=== PATIENT | female | born 1980 | race African-American/Black ===

== ENCOUNTER 2021-12-17 18:38 | Emergency (ER) | payer OTHER ==
--- NOTE | 2021-12-17 18:43 | ERPHSYRPT ---
- History of Present Illness Time Seen by Provider: 12/17/21 18:43 Source: patient Exam Limitations: no limitations Physician History: This is an -[place] 41-year-old female who is staying at the [facility] in [facility] secondary to alcohol abuse. She has not had an alcoholic beverage or any illicit drugs in 23 days. Patient has a history of diabetes, hypertension and pancreatitis. This morning, she had onset of abdominal pain that was significant and severe per her report. It was associated with vomiting episodes. She also noticed that her blood pressure and blood sugar were elevated as well. Patient was seen in [facility] emergency department approxi-1 week ago and a CAT scan with IV contrast was performed of her abdomen and pelvis. We have requested those records. Patient is here at our facility because she feels that they, [facility] emergency department, did not do anything for her. However, it appears as they did a significant work-up and again we are waiting for those records. Timing/Duration: today Severity: mild (To moderate) Associated Symptoms: nausea, vomiting, abdominal pain, No shortness of breath, No chest pain Allergies/Adverse Reactions: hydrocodone Allergy (Severe, Verified 12/17/21 19:51) Reaction: Psychosis ketorolac [From Toradol] Allergy (Severe, Verified 12/17/21 19:51) Reaction: Psychosis lisinopril Allergy (Severe, Verified 12/17/21 19:51) Swelling of Face Swelling of throat and face meperidine [From Demerol] Allergy (Severe, Verified 12/17/21 19:51) Reaction: Psychosis Home Medications: Albuterol Sulfate [Albuterol Sulfate Hfa] 2 puff PO Q4-6HPRN PRN 12/17/21 [History] Amlodipine Besylate [Norvasc] 1 tab PO DAILY 12/17/21 [History] Folic Acid 1 mg [Folate 1 mg] 1 tab PO DAILY 12/17/21 [History] Gabapentin 100 mg [Neurontin 100 MG] 200 mg PO TID 12/17/21 [History] Glipizide 10 mg [Glucotrol 10 MG] 1 tab PO DAILY 12/17/21 [History] Insulin Lispro See Protocol SQ CLARIFY 12/17/21 [History] Levetiracetam [Spritam] 1 tab PO BID 12/17/21 [History] Lipase/Protease/Amylase [Girish Sawant 36,000 Unit Capsule] 1 cap PO TID 12/17/21 [History] Mirtazapine 30 mg [Remeron 30 mg] 1 tab PO HS 12/17/21 [History] Multivitamin 1 tab PO DAILY 12/17/21 [History] Naltrexone HCl 50 mg PO DAILY 12/17/21 [History] Propranolol HCl 10 mg PO TID 12/17/21 [History] Sertraline HCl 50 mg [Zoloft 50 mg Tablet] 1 tab PO DAILY 12/17/21 [History] Sub-Q Infusion Pump Accessory [Accu-Chek] 1 each SQ QID 12/17/21 [History] cloNIDine HCL [Clonidine HCl] 1 tab PO DAILY 12/17/21 [History] cloNIDine HCL [Clonidine HCl] 1 tab PO HS 12/17/21 [History] hydrOXYzine pamoate [Hydroxyzine Pamoate] 100 mg PO HS 12/17/21 [History] Travel Risk - International Travel Have you traveled outside of the country in past 3 weeks: No - Coronavirus Screening Are you exhibiting any of the following symptoms?: No Close contact with a COVID-19 positive Pt in past 14-21 Days: No - Review of Systems Constitutional: No Symptoms Eyes: No Symptoms Ears, Nose, & Throat: No Symptoms, Tinnitus Respiratory: No Symptoms Cardiac: No Symptoms Abdominal/Gastrointestinal: Abdominal Pain, Nausea, Vomiting, No Diarrhea Genitourinary Symptoms: No Symptoms Musculoskeletal: No Symptoms Skin: No Symptoms Neurological: No Symptoms Psychological: No Symptoms Endocrine: No Symptoms Hematologic/Lymphatic: No Symptoms Immunological/Allergic: No Symptoms All Other Systems: Reviewed and Negative - Past Medical History Pertinent Past Medical History: Yes Cardiac History: Hypertension Endocrine Medical History: Diabetes Type I GI Medical History: Pancreatitis History: No Pertinent History Psycho-Social History: No Pertinent History Female Reproductive Disorders: No Pertinent History - Past Surgical History Past Surgical History: Yes - Nursing Vital Signs Nursing Vital Signs: Initial Vital Signs Temperature 98.3 F 12/17/21 18:40 Pulse Rate 83 12/17/21 18:40 Respiratory Rate 20 12/17/21 18:40 Blood Pressure 153/98 12/17/21 18:40 O2 Sat by Pulse Oximetry 99 12/17/21 18:40 Pain Scale Pain Intensity 9 - Physical Exam General Appearance: no apparent distress, alert, anxiety, thin Eye Exam: PERRL/EOMI, eyes nml inspection Ears, Nose, Throat Exam: normal ENT inspection, moist mucous membranes Neck Exam: normal inspection, non-tender, supple, full range of motion Respiratory Exam: normal breath sounds, lungs clear, airway intact, No chest tenderness, No respiratory distress Cardiovascular Exam: regular rate/rhythm, normal heart sounds, normal peripheral pulses Gastrointestinal/Abdomen Exam: soft, normal bowel sounds, tenderness (Mild diffuse to palpation), No guarding, No rebound Pelvic Exam: not done Rectal Exam: not done Back Exam: normal inspection, normal range of motion, No CVA tenderness, No vertebral tenderness Extremity Exam: normal inspection, normal range of motion, pelvis stable Neurologic Exam: alert, oriented x 3, cooperative, circular distributor II-XII nml as tested, normal mood/affect, nml cerebellar function, nml station & gait, sensation nml Skin Exam: normal color, warm, dry Lymphatic Exam: No adenopathy SpO2 Interpretation: normal O2 Delivery: Room Air - Course Nursing assessment & vital signs reviewed: Yes Ordered Tests: Active Orders 24 hr Category Date Time Status Diver Tender STAT Care 12/17/21 19:08 Active Clean Catch Urine Specimen STAT Care 12/17/21 19:09 Active IV Insertion STAT Care 12/17/21 19:08 Active POCT Glucose Check STAT Care 12/17/21 19:08 Active ABDOMEN AND PELVIS W/0 CONTRAS [CT] Stat Exams 12/17/21 19:43 Ordered AMYLASE Stat Lab 12/17/21 20:10 Completed CBC W DIFF Stat Lab 12/17/21 19:16 Completed CMP Stat Lab 12/17/21 19:16 Completed ETHYL ALCOHOL Stat Lab 12/17/21 19:16 Completed LIPASE Stat Lab 12/17/21 20:10 Completed Lactic Acid Urgent Lab 12/17/21 19:13 Completed MAGNESIUM Stat Lab 12/17/21 19:16 Completed POCT GLUCOSE Stat Lab 12/17/21 19:19 Completed POCT GLUCOSE Stat Lab 12/17/21 20:49 Received POCT GLUCOSE Stat Lab 12/17/21 20:50 Completed Urine Triage Profile Stat Lab 12/17/21 19:16 Completed Medication Summary Generic Name Dose Route Start Last Admin Trade Name Freq PRN Reason Stop Dose Admin Sodium Chloride 1,000 mls @ 100 mls/hr 12/17/21 19:15 12/17/21 19:24 Sodium Chloride 0.9% 1000 Ml IV 01/16/22 19:14 100 mls/hr .Q10H SAM Administration Discontinued Medications Generic Name Dose Route Start Last Admin Trade Name Pan PRN Reason Stop Dose Admin Hydromorphone HCl 1 mg 12/17/21 20:02 12/17/21 20:18 Hydromorphone 1 Mg/1ml Inj 1 Mg/Ml Syringe IV 12/17/21 20:03 1 mg STAT ONE Administration Hydromorphone HCl Confirm 12/17/21 20:16 Hydromorphone 1 Mg/1ml Inj 1 Mg/Ml Syringe Administered 12/17/21 20:17 Dose 1 mg .ROUTE .STK-MED ONE Insulin Human Regular 4 unit 12/17/21 19:42 12/17/21 19:50 Insulin Regular, Human 1 Unit IV 12/17/21 19:43 4 unit STAT ONE Administration Insulin Human Regular Confirm 12/17/21 19:48 Insulin Regular, Human 1 Unit Administered 12/17/21 19:49 Dose 4 unit .ROUTE .STK-MED ONE Ondansetron HCl 4 mg 12/17/21 19:43 12/17/21 19:51 Ondansetron Hcl 4 Mg/2 Ml Vial IV 12/17/21 19:44 4 mg STAT ONE Administration Ondansetron HCl Confirm 12/17/21 19:47 Ondansetron Hcl 4 Mg/2 Ml Vial Administered 12/17/21 19:48 Dose 4 mg .ROUTE .STK-MED ONE Lab/Rad Data: Laboratory Result Diagrams 12/17/21 19:16 12/17/21 19:16 Laboratory Results 12/17/21 12/17/21 12/17/21 Range/Units 20:50 20:10 19:19 WBC (4.0-10.5) K/mm3 RBC (4.1-5.4) M/mm3 Hgb (12.0-16.0) gm/dl Hct (35-47) % MCV (78-100) fl MCH (26-32) pg MCHC (32-36) g/dl RDW (11.5-14.0) % Plt Count (150-450) K/mm3 MPV (7.5-11.0) fl Gran % (36.0-66.0) % Eos # (Auto) (0-0.5) Absolute Lymphs (auto) (1.0-4.6) Absolute Monos (auto) (0.0-1.3) Lymphocytes % (24.0-44.0) % Monocytes % (0.0-12.0) % Eosinophils % (0.00-5.0) % Basophils % (0.0-0.4) % Absolute Granulocytes (1.4-6.9) Basophils # (0-0.4) Sodium (137-145) mmol/L Potassium (3.5-5.1) mmol/L Chloride (98-107) mmol/L Carbon Dioxide (22-30) mmol/L Anion Gap (5-15) MEQ/L BUN (7-17) mg/dL Creatinine (0.52-1.04) mg/dL Estimated GFR ML/MIN Glucose (74-106) mg/dL POC Glucometer 272 H 339 H (74 to 106) mg/dL Lactic Acid (0.4-2.0) Calcium (8.4-10.2) mg/dL Magnesium (1.6-2.3) mg/dL Total Bilirubin (0.2-1.3) mg/dL AST (14-36) U/L ALT (0-35) U/L Alkaline Phosphatase (38-126) U/L Serum Total Protein (6.3-8.2) g/dL Albumin (3.5-5.0) g/dL Amylase 161 H (30-110) U/L Lipase 329 H (23-300) U/L Urinalys Dipstick Clnc Urine Color (YELLOW) Urine Appearance (CLEAR) Urine pH (5-6) Ur Specific [place] (1.005-1.025) POC Urine Protein Conf (Negative) Urine Ketones (NEGATIVE) Urine Nitrite (NEGATIVE) Urine Bilirubin (NEGATIVE) Urine Urobilinogen (0-1) mg/dL Urine Leukocytes (NEGATIVE) Urine WBC (Auto) (0-5) /HPF Urine RBC (Auto) (0-2) /HPF U Epithel Cells (Auto) (FEW) /HPF Urine Bacteria (Auto) (NEGATIVE) /HPF Urine RBC (0-5) Nikos/ul Urine Mucus (Auto) (NEGATIVE) /HPF Ur Culture Indicated? Urine Glucose (NEGATIVE) mg/dL Urine Opiates Level (NEGATIVE) Ur Methadone (NEGATIVE) Urine Barbiturates (NEGATIVE) Ur Phencyclidine (PCP) (NEGATIVE) Urine Amphetamine (NEGATIVE) U Benzodiazepine Level (NEGATIVE) Urine Cocaine (NEGATIVE) Urine Marijuana (THC) (NEGATIVE) Ethyl Alcohol (0-10) mg/dL Slides for Path Review 12/17/21 12/17/21 12/17/21 Range/Units 19:16 19:16 19:16 WBC 10.9 H (4.0-10.5) K/mm3 RBC 3.41 L (4.1-5.4) M/mm3 Hgb 8.6 L (12.0-16.0) gm/dl Hct 27.8 L (35-47) % MCV 81.5 (78-100) fl MCH 25.2 L (26-32) pg MCHC 30.9 L (32-36) g/dl RDW 25.5 H (11.5-14.0) % Plt Count 327 (150-450) K/mm3 MPV 9.8 (7.5-11.0) fl Gran % 56.9 (36.0-66.0) % Eos # (Auto) 0.13 (0-0.5) Absolute Lymphs (auto) 3.59 (1.0-4.6) Absolute Monos (auto) 0.81 (0.0-1.3) Lymphocytes % 33.0 (24.0-44.0) % Monocytes % 7.4 (0.0-12.0) % Eosinophils % 1.2 (0.00-5.0) % Basophils % 1.5 (0.0-0.4) % Absolute Granulocytes 6.19 (1.4-6.9) Basophils # 0.16 (0-0.4) Sodium 133 L (137-145) mmol/L Potassium 4.5 (3.5-5.1) mmol/L Chloride 99 (98-107) mmol/L Carbon Dioxide 25 (22-30) mmol/L Anion Gap 14.0 (5-15) MEQ/L BUN 21 H (7-17) mg/dL Creatinine 0.47 L (0.52-1.04) mg/dL Estimated GFR > 60.0 ML/MIN Glucose 350 H (74-106) mg/dL POC Glucometer (74 to 106) mg/dL Lactic Acid (0.4-2.0) Calcium 9.7 (8.4-10.2) mg/dL Magnesium 1.7 (1.6-2.3) mg/dL Total Bilirubin 0.40 (0.2-1.3) mg/dL AST 63 H (14-36) U/L ALT 32 (0-35) U/L Alkaline Phosphatase 66 (38-126) U/L Serum Total Protein 7.4 (6.3-8.2) g/dL Albumin 4.1 (3.5-5.0) g/dL Amylase (30-110) U/L Lipase (23-300) U/L Urinalys Dipstick Clnc Urine Color (YELLOW) Urine Appearance (CLEAR) Urine pH (5-6) Ur Specific [place] (1.005-1.025) POC Urine Protein Conf (Negative) Urine Ketones (NEGATIVE) Urine Nitrite (NEGATIVE) Urine Bilirubin (NEGATIVE) Urine Urobilinogen (0-1) mg/dL Urine Leukocytes (NEGATIVE) Urine WBC (Auto) (0-5) /HPF Urine RBC (Auto) (0-2) /HPF U Epithel Cells (Auto) (FEW) /HPF Urine Bacteria (Auto) (NEGATIVE) /HPF Urine RBC (0-5) Nikos/ul Urine Mucus (Auto) (NEGATIVE) /HPF Ur Culture Indicated? Urine Glucose (NEGATIVE) mg/dL Urine Opiates Level NEGATIVE (NEGATIVE) Ur Methadone NEGATIVE (NEGATIVE) Urine Barbiturates POSITIVE (NEGATIVE) Ur Phencyclidine (PCP) NEGATIVE (NEGATIVE) Urine Amphetamine NEGATIVE (NEGATIVE) U Benzodiazepine Level NEGATIVE (NEGATIVE) Urine Cocaine NEGATIVE (NEGATIVE) Urine Marijuana (THC) NEGATIVE (NEGATIVE) Ethyl Alcohol < 10 (0-10) mg/dL Slides for Path Review YES 12/17/21 12/17/21 Range/Units 19:16 19:13 WBC (4.0-10.5) K/mm3 RBC (4.1-5.4) M/mm3 Hgb (12.0-16.0) gm/dl Hct (35-47) % MCV (78-100) fl MCH (26-32) pg MCHC (32-36) g/dl RDW (11.5-14.0) % Plt Count (150-450) K/mm3 MPV (7.5-11.0) fl Gran % (36.0-66.0) % Eos # (Auto) (0-0.5) Absolute Lymphs (auto) (1.0-4.6) Absolute Monos (auto) (0.0-1.3) Lymphocytes % (24.0-44.0) % Monocytes % (0.0-12.0) % Eosinophils % (0.00-5.0) % Basophils % (0.0-0.4) % Absolute Granulocytes (1.4-6.9) Basophils # (0-0.4) Sodium (137-145) mmol/L Potassium (3.5-5.1) mmol/L Chloride (98-107) mmol/L Carbon Dioxide (22-30) mmol/L Anion Gap (5-15) MEQ/L BUN (7-17) mg/dL Creatinine (0.52-1.04) mg/dL Estimated GFR ML/MIN Glucose (74-106) mg/dL POC Glucometer (74 to 106) mg/dL Lactic Acid 1.6 (0.4-2.0) Calcium (8.4-10.2) mg/dL Magnesium (1.6-2.3) mg/dL Total Bilirubin (0.2-1.3) mg/dL AST (14-36) U/L ALT (0-35) U/L Alkaline Phosphatase (38-126) U/L Serum Total Protein (6.3-8.2) g/dL Albumin (3.5-5.0) g/dL Amylase (30-110) U/L Lipase (23-300) U/L Urinalys Dipstick Clnc MAIN LAB Urine Color YELLOW (YELLOW) Urine Appearance CLEAR (CLEAR) Urine pH 6.5 (5-6) Ur Specific [place] 1.025 (1.005-1.025) POC Urine Protein Conf NEGATIVE (Negative) Urine Ketones NEGATIVE (NEGATIVE) Urine Nitrite NEGATIVE (NEGATIVE) Urine Bilirubin NEGATIVE (NEGATIVE) Urine Urobilinogen 0.2 (0-1) mg/dL Urine Leukocytes NEGATIVE (NEGATIVE) Urine WBC (Auto) 0-2 (0-5) /HPF Urine RBC (Auto) NONE (0-2) /HPF U Epithel Cells (Auto) RARE (FEW) /HPF Urine Bacteria (Auto) NONE (NEGATIVE) /HPF Urine RBC LARGE (0-5) Nikos/ul Urine Mucus (Auto) SLIGHT (NEGATIVE) /HPF Ur Culture Indicated? NO Urine Glucose 500 (NEGATIVE) mg/dL Urine Opiates Level (NEGATIVE) Ur Methadone (NEGATIVE) Urine Barbiturates (NEGATIVE) Ur Phencyclidine (PCP) (NEGATIVE) Urine Amphetamine (NEGATIVE) U Benzodiazepine Level (NEGATIVE) Urine Cocaine (NEGATIVE) Urine Marijuana (THC) (NEGATIVE) Ethyl Alcohol (0-10) mg/dL Slides for Path Review - Progress Progress: improved, pain not gone completely, re-examined Progress Note: 12/17/21 20:42 CAT scan of the abdomen and pelvis shows a left adnexal mass/cyst ovarian in nature is most likely. There is chronic pancreatitis present. There is a normal appendix. 12/17/21 20:43 Records from [facility] emergency department was reviewed. The date of those records were 12/10/2021. Ultrasound of the pelvis shows a hemorrhagic left ovarian cyst. Counseled pt/family regarding: lab results, diagnosis, need for follow-up, rad results - Departure Departure Disposition: Home Clinical Impression: Abdominal pain, Chronic pancreatitis Condition: Stable Critical Care Time: No Referrals: DOCTOR,NO FAMILY [Primary Care Provider] - Follow up/PCP as directed Additional Instructions: Clear liquids only for the next 12 to 16 hours. Avoid fatty greasy spicy foods. Follow-up with your primary care provider for further evaluation and management. Prescriptions: Ondansetron ODT 4 MG [Zofran Odt 4 mg] 4 mg PO Q6H PRN PRN #10 tablet PRN Reason: Vomiting
[2021-12-17] MEDS ORDERED: Sodium Chloride 0.9% 1000 ML 1,000 ML IV SCH (19:15)
[2021-12-17 19:20] LABS: Absolute Neutrophil Ct (ANC) 6.19 (1.4-6.9); Basophil (Absolute #) 0.16 (0-0.4); Eosinophil % 1.2 % (0.00-5.0); Eosinophil (Absolute #) 0.13 (0-0.5); Hematocrit 27.8 % (35-47); Hemoglobin 8.6 gm/dl (12.0-16.0); Lymphocyte (Absolute #) 3.59 (1.0-4.6); Mean Cell Volume 81.5 fl (78-100); Mean Corpuscular Hemoglobin 25.2 pg (26-32); Mean Corpuscular Hgb Concent. 30.9 g/dl (32-36); Mean Platelet Volume 9.8 fl (7.5-11.0); Monocyte (Absolute #) 0.81 (0.0-1.3); Monocytes % 7.4 % (0.0-12.0); Neutrophil % 56.9 % (36.0-66.0); Platelet Count 327 K/mm3 (150-450); Red Blood Count 3.41 M/mm3 (4.1-5.4); Red Cell Distribution Width 25.5 % (11.5-14.0); White Blood Count 10.9 K/mm3 (4.0-10.5)
[2021-12-17] MEDS ORDERED: Sodium Chloride 0.9% 1000 ML 1,000 ML ONE ×2 (19:22→21:50)
[2021-12-17 19:23] LABS: Appearance CLEAR (CLEAR); Bilirubin NEGATIVE (NEGATIVE); Dipstick done @ ? MAIN LAB; Glucose 500 mg/dL (NEGATIVE); Ketones NEGATIVE (NEGATIVE); Nitrite NEGATIVE (NEGATIVE); Ph 6.5 (5-6); Protein,Urine Dip NEGATIVE (Negative); RBC LARGE Ery/ul (0-5); Specific Gravity 1.025 (1.005-1.025); Urobilinogen 0.2 mg/dL (0-1)
[2021-12-17 19:28] LABS: Epithelial Cells RARE /HPF (FEW); Mucus SLIGHT /HPF (NEGATIVE); WBC 0-2 /HPF (0-5)
[2021-12-17 19:29] LABS: Urine Cultured Indicated? NO
[2021-12-17 19:40] LABS: ALBUMIN 4.1 g/dL (3.5-5.0); ALKALINE PHOSPHATASE 66 U/L (38-126); Amphetamine,Urine NEGATIVE (NEGATIVE); BLOOD UREA NITROGEN 21 mg/dL (7-17); Barbiturate,Urine POSITIVE (NEGATIVE); Benzodiazepine,Urine NEGATIVE (NEGATIVE); CHLORIDE 99 mmol/L (98-107); Calcium 9.7 mg/dL (8.4-10.2); Carbon Dioxide 25 mmol/L (22-30); Cocaine,Urine NEGATIVE (NEGATIVE); Creatinine 1 0.47 mg/dL (0.52-1.04); EST GLOMERULAR FILTRATION RATE > 60.0 ML/MIN; ETHYL ALCOHOL < 10 mg/dL (0-10); Glucose 350 mg/dL (74-106); MAGNESIUM 1.7 mg/dL (1.6-2.3); Methadone,Urine NEGATIVE (NEGATIVE); Opiate,Urine NEGATIVE (NEGATIVE); PCP,Urine NEGATIVE (NEGATIVE); Potassium 4.5 mmol/L (3.5-5.1); SGOT/AST 63 U/L (14-36); SGPT/ALT 32 U/L (0-35); SODIUM 133 mmol/L (137-145); THC,Urine NEGATIVE (NEGATIVE); Total Protein 7.4 g/dL (6.3-8.2)
[2021-12-17] MEDS ORDERED: HUMULIN R IV ONE ×2 (19:42→22:26)
[2021-12-17] MEDS ORDERED: Zofran 4 MG/2 ML VIAL IV ONE (19:43)
[2021-12-17] MEDS ORDERED: Zofran 4 MG/2 ML VIAL ONE (19:47)
[2021-12-17] MEDS ORDERED: HUMULIN R ONE ×2 (19:48→22:29)
[2021-12-17] MEDS ORDERED: Hydromorphone 1 mg/ml Injection IV ONE (20:02)
[2021-12-17] MEDS ORDERED: Hydromorphone 1 mg/ml Injection ONE (20:16)
[2021-12-17 20:17] LABS: AMYLASE 161 U/L (30-110); LIPASE 329 U/L (23-300)
[2021-12-17 20:42] LABS: Slide Review 1 YES
[2021-12-17] MEDS ORDERED: Sodium Chloride 0.9% 1000 ML 1,000 ML IV STA (21:06)
[2021-12-17] MEDS ORDERED: Ativan 2 MG/1 ML VIAL IV ONE (21:28)
[2021-12-17] MEDS ORDERED: Ativan 2 MG/1 ML VIAL ONE (21:49)
[2021-12-17] MEDS ORDERED: MOTRIN 600 MG PO ONE (23:25)
[2021-12-17] MEDS ORDERED: MOTRIN 600 MG ONE (23:26)
[2021-12-17 23:32] VITALS: BP 140/80; PULSE 70; O2SAT 99
--- NOTE | 2021-12-18 08:43 | XRAY ---
Indication: Upper abdomen pain. Nausea and vomiting. History of pancreatitis. Multiple contiguous axial images obtained through the abdomen and pelvis without contrast. Comparison: None Lung bases are clear of infiltrate and effusion. Heart not enlarged. Stomach distended with food/fluid. Noncontrasted stomach and bowel loops appear nonobstructed with normal appendix. Mild diffuse scattered colonic fecal debris throughout. Gallbladder contracted without gallstones. Left adnexa demonstrates a 3.8 x 4.2 cm noncalcified mass either exophytic uterine fibroid versus ovarian mass. Tiny scattered chronic pancreatitis calcifications. No free fluid/air. Remaining liver, gallbladder, pancreas, spleen, adrenal glands, kidneys, ureters, bladder, uterus, and aorta are unremarkable for noncontrast exam. Osseous structures intact. No ventral or inguinal hernias. Impression: 1. Left adnexa noncalcified mass as detailed. Rule out uterine fibroid versus ovarian mass. Pelvic sonogram may yield further information. 2. Mild diffuse fecal stasis. 3. Incidental chronic pancreatitis calcifications.
== END 2021-12-17 23:34 | disposition home or self-care (01) ==
LOC: ED 18:38
DX: K86.1 Other chronic pancreatitis (principal); R10.9 Unspecified abdominal pain; R11.2 Nausea with vomiting, unspecified; E10.9 Type 1 diabetes mellitus without complications; I10 Essential (primary) hypertension; Z79.4 Long term (current) use of insulin; Z96.41 Presence of insulin pump (external) (internal); Z79.899 Other long term (current) drug therapy
CPT/HCPCS: 36000; 36415; 74176; 80053; 80307; 81015; 82150; 82947; 83605; 83690; 83735; 85025; 93041; 96374; 96375; 99285; G0480; J1170; J1815; J2060; J2405; A9270-GY